=== PATIENT | female | born 1990 | race Caucasian/White ===

== ENCOUNTER 2016-09-20 19:32 | Inpatient (IN) | payer OTHER ==
[2016-09-20 22:07] LABS: Hematocrit 43 % (35-47); Hemoglobin 14.5 g/dl (12.0-16.0); Mean Corpuscular HGB Conc 34 g/dl (31-36); Mean Corpuscular Hemoglobin 31 pg (27-31); Mean Corpuscular Volume 91 fL (80-97); Mean Platelet Volume 11 um3 (7.4-10.4); Red Blood Count 4.69 10^6/ul (4.0-5.4); Red Cell Distribution Width 13 % (10.5-15); White Blood Count 16.4 10^3/ul (3.5-10.8)
[2016-09-20] MEDS ORDERED: fentaNYL* 50 MCG/ML 2 ML VIAL (100 MCG VIAL) ONE (22:23)
[2016-09-20] MEDS ORDERED: OBEPIDURAL* 250 ML ONE (22:23)
[2016-09-20] MEDS ORDERED: Sodium Citrate/Citric Acid* 15 ML UDC PO PRN (23:05)
[2016-09-20] MEDS ORDERED: Phenylephrine IV* 40 MCG/ML 10 ML SYRINGE IV PUSH PRN ×2 (23:05)
[2016-09-20] MEDS ORDERED: Famotidine TAB* 20 MG PO PRN (23:05)
[2016-09-20] MEDS ORDERED: OBEPIDURAL* 250 ML EPIDURAL SCH (23:45)
[2016-09-21] MEDS ORDERED: Oxytocin in LR* 20 UNITS/1,000 ML BAG IVPB ONE (01:46)
[2016-09-21] MEDS ORDERED: Glycerin ADULT SUPP PR PRN (02:04)
[2016-09-21] MEDS ORDERED: Dibucaine 1% 28.35 GM TUBE PR PRN (02:04)
[2016-09-21] MEDS ORDERED: Acetaminophen TAB* 325 MG PO PRN (02:04)
[2016-09-21] MEDS ORDERED: Witch Hazel PAD* JAR TOPICAL PRN (02:04)
[2016-09-21] MEDS ORDERED: Albuterol HFA INHALER* 8 gm MDI INH PRN (02:10)
[2016-09-21] MEDS ORDERED: Oxytocin in LR* 20 UNITS/1,000 ML BAG IVPB SCH (03:00)
[2016-09-21] MEDS: Ibuprofen TAB* 600 MG PO PRN ×3 (04:00→18:12)
[2016-09-21] MEDS ORDERED: Simethicone TAB* 80 MG TAB.CHEW PO SCH (08:30)
[2016-09-21] MEDS: FLUTICASONE 100 MCG INH SCH ×2 (09:04→19:26)
[2016-09-21] MEDS: Sertraline* 50 MG TAB PO SCH (09:34)
[2016-09-21] MEDS: Docusate CAP* 100 MG PO SCH ×3 (09:34→20:47)
[2016-09-21] MEDS ORDERED: RHO D Immune Globulin (HUMAN)* 300 MCG = 1,500 I.U. INJ IM ONE (13:50)
[2016-09-22] MEDS: Ibuprofen TAB* 600 MG PO PRN ×3 (00:09→17:36)
[2016-09-22 07:27] LABS: Hematocrit 41 % (35-47); Hemoglobin 14.2 g/dl (12.0-16.0); Mean Corpuscular HGB Conc 35 g/dl (31-36); Mean Corpuscular Hemoglobin 32 pg (27-31); Mean Corpuscular Volume 91 fL (80-97); Mean Platelet Volume 11 um3 (7.4-10.4); Red Blood Count 4.46 10^6/ul (4.0-5.4); Red Cell Distribution Width 13 % (10.5-15); White Blood Count 14.1 10^3/ul (3.5-10.8)
[2016-09-22] MEDS ORDERED: Ferrous Gluconate TAB* 324 MG TAB PO SCH (09:00)
[2016-09-22] MEDS: Sertraline* 50 MG TAB PO SCH (09:21)
[2016-09-22] MEDS: Docusate CAP* 100 MG PO SCH ×3 (09:21→21:26)
[2016-09-22] MEDS: FLUTICASONE 100 MCG INH SCH ×2 (09:43→21:21)
[2016-09-23] MEDS: Ibuprofen TAB* 600 MG PO PRN ×2 (00:14→08:25)
[2016-09-23] MEDS: Docusate CAP* 100 MG PO SCH (08:25)
[2016-09-23] MEDS: Sertraline* 50 MG TAB PO SCH (08:25)
[2016-09-23 08:30] VITALS: BP 121/68
[2016-09-23] MEDS: FLUTICASONE 100 MCG INH SCH (10:45)
== END 2016-09-23 10:35 | disposition home or self-care (01) | DRG 560 ==
LOC: MCHOBOUT 19:32 → MCHOB 20:06
PROVIDERS: ADMIT Obstetrics & Gynecology; ATTEND Midwife
PROC: 10E0XZZ Delivery of Products of Conception, External Approach (ICD-10-PCS; principal; 2016-09-21)
PROC: 10907ZC Drainage of Amniotic Fluid, Therapeutic from Products of Conception, Via Natural or Artificial Opening (ICD-10-PCS; 2016-09-21)
DX: O34.211 Maternal care for low transverse scar from previous cesarean delivery (principal); O99.344 Other mental disorders complicating childbirth; F32.9 Major depressive disorder, single episode, unspecified; Z3A.37 37 weeks gestation of pregnancy; Z37.0 Single live birth
CPT/HCPCS: 36415; 85025; 85027; 85461; 86850; 86870; 86880; 86900; 86901; A9270-GY; J2790; J3010

== ENCOUNTER 2017-01-09 09:54 | Emergency (ER) | payer OTHER ==
[2017-01-09 10:32] VITALS: BP 88/47
--- NOTE | 2017-01-09 10:35 | UC ---
Throat Pain/Nasal Nnamdi HPI - HPI Summary HPI Summary: complaiontof being dx with conjunctivitis on moday given 2 different eyedrops and started using them but they burn her throat complaint of sore throat that started 2 days ago feels feverish and had chills yesterday denies nasal congestion and cough frequent headaches feels nauseated- able to eat soup and crackers not taking any medication for fever or headache because she is - History of Current Complaint Chief Complaint: UCGeneralIllness Stated Complaint: FEVER Hx Obtained From: Patient Hx Last Menstrual Period: 4 months post and is - Allergies/Home Medications Allergies/Adverse Reactions: Allergies Allergy/AdvReac Type Severity Reaction Status Date / Time Adhesive Tape Allergy Mild Rash Verified 01/09/17 10:17 Latex Allergy Swelling Verified 01/09/17 10:17 BAND-AIDS Allergy Severe REDNESS, Uncoded 01/09/17 10:17 ITCHING Environmental Allergies Allergy Intermediate Sneezing Uncoded 01/09/17 10:17 PMH/Surg Hx/FS Hx/Imm Hx Previously Healthy: No - conjunctivitis, , vasovagal syndrome Endocrine History Of: Denies: Diabetes, Thyroid Disease Cardiovascular History Of: Reports: Cardiac Disorders - vasovagal syncope Denies: Hypertension, Pacemaker/ICD, Myocardial Infarction, Congestive Heart Failure, Atrial Fibrillation, Deep Vein Thrombosis, Bleeding Disorders Respiratory History Of: Reports: Asthma Denies: COPD, Bronchitis, Pneumonia, Pulmonary Embolism GI/ History Of: Denies: Gastroesophageal Reflux, Ulcer, Gastrointestinal Bleed, Gall Bladder Disease, Kidney Stones, Diverticulitis, Renal Disease, Urosepsis Neurological History Of: Reports: Migraine Denies: TIA, CVA, Dementia, Seizures Psychological History Of: Reports: Anxiety, Depression Denies: Bipolar Disorder, Schizophrenia, Post Traumatic Stress Disorder Cancer History Of: Denies: Lung Cancer, Colorectal Cancer, Breast Cancer, Prostate Cancer, Cervical Cancer Other History Of: Negative For: HIV, Hepatitis B, Hepatitis C - Surgical History Surgical History: Yes Surgery Procedure, Year, and Place: hernia repair, x1 - Family History Known Family History: Positive: Unknown, Cardiac Disease, Hypertension - Social History Lives: With Family Alcohol Use: None Substance Use Type: None Smoking Status (MU): Never Smoked Tobacco Have You Smoked in the Last Year: No - Immunization History Most Recent Influenza Vaccination: 05/06/16 Most Recent Tetanus Shot: unknown Most Recent Pneumonia Vaccination: as teenager Review of Systems Constitutional: Fever, Chills, Fatigue Skin: Negative Eyes: Drainage, Eye Redness ENT: Sore Throat Respiratory: Negative Cardiovascular: Negative Gastrointestinal: Negative Genitourinary: Negative Motor: Negative Neurovascular: Negative Musculoskeletal: Negative Neurological: Negative Psychological: Negative All Other Systems Reviewed And Are Negative: Yes Physical Exam Triage Information Reviewed: Yes Appearance: No Pain Distress, Ill-Appearing Vital Signs: Initial Vital Signs Temp 97.8 F 01/09/17 10:11 Pulse 108 01/09/17 10:11 Resp 18 01/09/17 10:11 BP 88/47 01/09/17 10:11 Pulse Ox 98 01/09/17 10:11 Vital Signs Reviewed: Yes Eyes: Positive: Conjunctiva Inflamed, Discharge ENT: Positive: Pharyngeal erythema, Nasal congestion, Nasal drainage, TMs normal Neck: Positive: No Lymphadenopathy Respiratory: Positive: Lungs clear, Normal breath sounds, No respiratory distress, No accessory muscle use Cardiovascular: Positive: No Murmur, Pulses Normal, Tachycardia Abdomen Description: Positive: Nontender, Soft Bowel Sounds: Positive: Present Musculoskeletal: Positive: No Edema Neurological Exam: Normal Psychological Exam: Normal Skin Exam: Normal Throat Pain/Nasal Course/Dx - Course Course Of Treatment: exam completed. pt not drinking fluids d/t throat pain or medicationg for fever. discussed at length importance of avoiding dehydration. will rx ibuprofen and have her increase fluids- close followup with PCP - Differential Dx/Diagnosis Differential Diagnosis/HQI/PQRI: Influenza, Pharyngitis, Sinusitis, Tonsillitis Provider Diagnoses: pharyngitis. conjunctivitis Discharge - Discharge Plan Condition: Stable Disposition: HOME Patient Education Materials: Fever in Adults (ED), Pharyngitis (ED) Referrals: Pancho Vance MD [Primary Care Provider] - Additional Instructions: It is extremely important that you take ibuprofen 2-3 times a day to manage your sore throat so you can increase your fluids intake and stay well-hydrated because of your illness and . continue your treatment for conjunctivitis If your symptoms do not improve please make followup appt with Dr Dang.
[2017-01-09] MEDS ORDERED: Ibuprofen TAB* 600 MG PO ONE (11:26)
== END 2017-01-09 11:51 | disposition home or self-care (01) ==
LOC: UCEAST 09:54
DX: J02.9 Acute pharyngitis, unspecified (principal); H10.9 Unspecified conjunctivitis; J45.909 Unspecified asthma, uncomplicated; G43.909 Migraine, unspecified, not intractable, without status migrainosus; F41.9 Anxiety disorder, unspecified; F32.9 Major depressive disorder, single episode, unspecified; Z91.040 Latex allergy status
CPT/HCPCS: 87502; 87651; 99212; A9270-GY; G0463

== ENCOUNTER 2018-06-08 08:20 | Day surgery (SDC) | payer OTHER ==
--- NOTE | 2018-05-25 07:36 | HP ---
PREOPERATIVE HISTORY AND PHYSICAL: DATE OF ADMISSION/SURGERY: 06/08/18 DATE OF OFFICE VISIT/ENCOUNTER: 05/24/18 ATTENDING SURGEON: Linda Sterling MD * (DICTATED BY SHASHANK BETANCOURT) PROCEDURE: Left wrist de Quervain's release. CHIEF COMPLAINT: Left wrist pain. HISTORY OF PRESENT ILLNESS: This is a 27-year-old female, who has had ongoing pain in her left wrist for several years on and off; however, it has become more persistent over the past year. The pain is located on the radial aspect of the wrist. She denies any injury; however, she does have young children and is regularly lifting them. She denies any trauma. There is no associated numbness or tingling. She has had 2 cortisone injections over the past year for this problem and each have worked for a period of time, but the symptoms returned. She has also tried bracing without permanent success. She is interested in having surgical intervention at this time. PAST MEDICAL HISTORY: 1. History of vasovagal episode; she is followed by Dr. Culver. 2. Asthma. 3. Depression/anxiety related to PTSD. 4. Light sensitivity, which causes headaches. PAST SURGICAL HISTORY: 1. Hernia repair. 2. x1. CURRENT MEDICATIONS: 1. Acetaminophen 500 mg 2 tablets q.4 to 6 hours p.r.n. 2. Albuterol sulfate 1 vial nebulizer 4 times a day p.r.n. 3. Fludrocortisone acetate 0.1 mg 1 tab daily. 4. Meloxicam 15 mg daily. 5. Montelukast sodium 10 mg daily. 6. Sertraline HCl 100 mg half a tab twice daily. ALLERGIES: LATEX and TAPE cause skin irritation. No known drug allergies. FAMILY MEDICAL HISTORY: Diabetes, heart disease, stroke, cancer, and rheumatoid arthritis. 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 She denies tobacco use, recreational drug use, and does not drink alcohol. REVIEW OF SYSTEMS: Negative for general, cephalic, cardiovascular, respiratory , GI, , other musculoskeletal, integumentary, endocrine, neurologic, and hematologic symptoms. Infectious Disease: Negative for MRSA, hepatitis C, and HIV. No known anesthesia problems. PHYSICAL EXAMINATION GENERAL: Well-developed, well-nourished, 27-year-old female, in no acute distress. VITAL SIGNS: Height 5 feet 2-1/2 inches, weight 148 pounds. Pulse rate 78, blood pressure 132/70. HEENT: Normocephalic, atraumatic. Pupils are equal, round, and reactive to light and accommodation. Extraocular movements are intact. Throat is clear. NECK: Supple. No palpable lymph nodes. PULMONARY: Lungs are clear to auscultation bilaterally. No wheezes, rales, or rhonchi. CARDIOVASCULAR: Regular rate and rhythm. S1, S2. No murmurs, rubs, or gallops. No edema. ABDOMEN: Positive bowel sounds, soft, nontender. NEUROLOGICAL: Alert and oriented x3. Cranial nerves II through XII are intact. Sensation is intact to light touch. MUSCULOSKELETAL: On exam of the left wrist, there is no visible swelling when compared to the right. There is tenderness to palpation at the radial styloid along the first dorsal compartment, increased pain with wrist extension and thumb abduction against resistance. Positive Camille's test on the left. NEUROLOGIC: Neurovascular function is intact. IMPRESSION: Left wrist de Quervain's tenosynovitis. PLAN: The patient is scheduled to undergo a left wrist de Quervain's release with Dr. Sterling on 06/08/18. She will follow up 10 days postop for followup and suture removal. She will plan on using [id number] Tylenol and her prescription meloxicam as prescribed for postoperative pain management. SHASHANK BETANCOURT [id number]/[facility] #: [id number] [facility]USSalvador
[~2018-06-08 08:20] MED LIST: Buffered Lidocaine 0.9% SYRIN* 5 ML/SYR SYRINGE INTRADERM ONE; Famotidine IV* 10 MG/ML 2 ML (20 mg) IV ONE; Famotidine IV* 10 MG/ML 2 ML (20 mg) ONE; Lidocaine 1% INJ* 10 MG/ML 30 ML SDV ONE
[2018-06-08] MEDS ORDERED: Acetaminophen TAB* 325 MG PO PRN (09:38)
[2018-06-08] MEDS ORDERED: Naloxone* 0.4 MG/ML 1 ML VIAL IV PRN (09:38)
[2018-06-08] MEDS ORDERED: DiMENhydriNATE IV* 50 MG/ML VIAL IV PUSH PRN (09:38)
[2018-06-08] MEDS ORDERED: Midazolam* 1 MG/ML 5 ML VIAL (5 MG) ONE (09:45)
[2018-06-08] MEDS ORDERED: fentaNYL* 50 MCG/ML 2 ML VIAL (100 MCG VIAL) ONE (09:45)
[2018-06-08] MEDS ORDERED: Lidocaine 2% PF * 5 ML VIAL ONE (10:07)
[2018-06-08] MEDS ORDERED: Propofol* 10 MG/ML 20 ML BTL IV PUSH ONE (10:07)
[2018-06-08] MEDS ORDERED: Ketorolac INJ* 30 MG/ML 1 ML VIAL ONE (10:07)
[2018-06-08] MEDS ORDERED: Ondansetron INJ* 2 MG/ML VIAL ONE (10:07)
[2018-06-08 10:27] VITALS: BP 107/70
--- NOTE | 2018-06-09 04:21 | OP ---
DATE OF OPERATION: 06/08/18 [facility] DATE OF : 89 SURGEON: Linda Sterling MD [facility] SUPERVISOR: SHASHANK Brown ANESTHESIA: Local MAC. PRE-OP DIAGNOSIS: De Quervain's tenosynovitis on the left. POST-OP DIAGNOSIS: De Quervain's tenosynovitis on the left. OPERATIVE PROCEDURE: Left de Quervain's release. ESTIMATED BLOOD LOSS: Zero. TOURNIQUET TIME: About 10 minutes. INDICATIONS FOR PROCEDURE: Shila is a 27-year-old female with pain on the radial aspect of her left wrist. She has failed conservative treatment for de Quervain's tenosynovitis, presents for de Quervain's release on the left. DESCRIPTION OF PROCEDURE: The patient was brought to the operating room and was given a sedation anesthetic with a local infiltration of 10 cc of 1% plain lidocaine in the radial aspect of her left wrist. The skin of her left hand and forearm was prepped and draped in the usual sterile fashion. The hand and forearm were exsanguinated and the tourniquet elevated to 250 mmHg. A longitudinal incision was made centered at the tip of the radial styloid. We dissected bluntly through the subcutaneous tissue down to the first dorsal compartment. Branches of the radial sensory nerve were located and were retracted by the certified medical technician assistant, Maryann Chiu. The first dorsal compartment was incised longitudinally completely releasing the APL and EPB tendons, which were in good condition. The wound was irrigated and the skin edges were reapproximated with 4-0 nylon suture. The wound was dressed with Xeroform, 4x4, Webril, and an Sreedhar wrap. The patient tolerated the procedure well and was brought to the recovery room in good condition. [id number]/[facility] #[facility] [id number] [facility]
== END 2018-06-08 10:51 | disposition home or self-care (01) ==
LOC: OREAST 08:20
PROVIDERS: ATTEND Orthopaedic Surgery
DX: M65.4 Radial styloid tenosynovitis [de Quervain] (principal); R55 Syncope and collapse; J45.909 Unspecified asthma, uncomplicated; F41.8 Other specified anxiety disorders; F43.10 Post-traumatic stress disorder, unspecified; H53.71 Glare sensitivity
CPT/HCPCS: 81025; J1885; J2250; J2405; J2704; J3010

== ENCOUNTER 2020-09-27 11:53 | Inpatient (IN) ==
[2020-09-27] MEDS ORDERED: Buffered Lidocaine 1% SYRIN 1 ml INTRADERM ONE (12:34)
[2020-09-27] MEDS ORDERED: Lactated Ringers 1000 ml BAG 1,000 ML IV SCH (13:00)
[2020-09-27 13:42] LABS: ABS Basophils 0.1 10^3/ul (0-0.2); ABS Eosinophils 0.2 10^3/ul (0-0.6); ABS Lymphocytes 2.7 10^3/ul (1.0-4.8); ABS Monocytes 1.3 10^3/ul (0-0.8); ABS Neutrophils 7.8 10^3/ul (1.5-7.7); Eosinophil % 1.9 %; Hematocrit 33 % (35-47); Hemoglobin 10.8 g/dL (12.0-16.0); Lymphocyte % 22.2 %; Mean Corpuscular HGB Conc 33 g/dL (31-36); Mean Corpuscular Hemoglobin 26 pg (27-31); Mean Corpuscular Volume 79 fL (80-97); Mean Platelet Volume 9.1 fL (7.4-10.4); Nucleated Red Blood Cells % 0.1; Platelet Count 298 10^3/uL (150-450); Red Blood Count 4.17 10^6 /uL (3.70-4.87); Red Cell Distribution Width 16 % (10-15); White Blood Count 12.1 10^3/uL (3.5-10.8)
[2020-09-27 13:59] LABS: Albumin 3.3 g/dL (3.2-5.2); Albumin/Globulin Ratio 1.1 (1-3); BUN/Creatinine Ratio 19.6 (8-20); EGFR African American 173.7 (>60); EGFR Non-African American 143.6 (>60); Globulin 2.9 g/dL (2-4); Total Bilirubin 0.5 mg/dL (0.2-1.0); Total Protein 6.2 g/dL (6.4-8.9); Uric Acid 2.8 mg/dL (2.3-6.6)
[2020-09-27 14:29] LABS: Potassium 4.6 mmol/L (3.5-5.0)
[2020-09-27 14:56] LABS: Urine Benzodiazepine Screen None Detected (None Detect); Urine Cannabinoids Screen None Detected (None Detect); Urine Opiates Screen None Detected (None Detect)
[2020-09-27] MEDS: Betamethasone 6 mg/ml 5 ml VIAL IM ONE (17:55)
[2020-09-27 21:42] LABS: Urine Appearance Cloudy; Urine Bilirubin Negative (Negative); Urine Blood Negative (Negative); Urine Color Yellow; Urine Glucose 3+(>=500 mg/dL) (Negative); Urine Ketones Negative (Negative); Urine Nitrite Negative (Negative); Urine Protein Negative (Negative); Urine Specific Gravity 1.007 (1.010-1.030); Urine Urobilinogen Negative (Negative)
[2020-09-28 17:45] LABS: Urine TP Concentration 16 mg/dL
[2020-09-28] MEDS: Betamethasone 6 mg/ml 5 ml VIAL IM ONE (18:00)
== END 2020-09-28 19:05 | disposition home or self-care (01) | DRG 560 ==
LOC: MCHOBOUT 11:53 → MCHOB 12:53 → OBSVTOIN 12:53 → INTOOBSV 12:53
PROVIDERS: ADMIT Obstetrics & Gynecology; ATTEND Obstetrics & Gynecology

== ENCOUNTER 2020-10-03 08:58 | Inpatient (IN) ==
[~2020-10-03 08:58] MED LIST changes: -Buffered Lidocaine 0.9% SYRIN* 5 ML/SYR SYRINGE INTRADERM ONE; +Buffered Lidocaine 1% SYRIN 1 ml INTRADERM ONE; -Famotidine IV* 10 MG/ML 2 ML (20 mg) IV ONE; -Famotidine IV* 10 MG/ML 2 ML (20 mg) ONE; -Lidocaine 1% INJ* 10 MG/ML 30 ML SDV ONE; +ceFOXitin 2 GM IVPREMIX 2 GM/50 ML BAG IVPB ONE
[2020-10-03] MEDS ORDERED: Sodium Citrate/Citric Acid LIQ 15 ML UDC ONE (10:26)
[2020-10-03] MEDS ORDERED: Famotidine IV 10 MG/ML 2 ml VIAL (20 mg) ONE (10:27)
[2020-10-03] MEDS ORDERED: Sodium Citrate/Citric Acid LIQ 15 ML UDC PO ONE (10:36)
[2020-10-03] MEDS ORDERED: Lactated Ringers 1000 ml BAG 1,000 ML IV ONE (10:41)
[2020-10-03 10:51] LABS: Urine Benzodiazepine Screen None Detected (None Detect); Urine Cannabinoids Screen None Detected (None Detect); Urine Opiates Screen None Detected (None Detect)
[2020-10-03] MEDS ORDERED: EPHEDrine (Pressors) 50 MG/ML VIAL ONE (10:53)
[2020-10-03] MEDS ORDERED: Morphine PF AMP (0.5MG/ML) 5 MG/10 ML AMP ONE (10:53)
[2020-10-03] MEDS ORDERED: fentaNYL 100 mcg/2 ml 50 MCG/ML VIAL ONE (10:53)
[2020-10-03] MEDS ORDERED: Phenylephrine 40 mcg/mL 10mL (400mcg) SYRINGE ONE (10:54)
[2020-10-03] MEDS ORDERED: Oxytocin 10 UNITS/ML 1 ML VIAL ONE (11:51)
[2020-10-03] MEDS ORDERED: Ondansetron 4 mg VIAL 2 MG/ML 2 ml VIAL ONE (12:01)
[2020-10-03] MEDS ORDERED: Dibucaine 1% OINT 28.35 GM TUBE PR PRN (13:00)
[2020-10-03] MEDS ORDERED: Glycerin ADULT 2.4 gm SUPP PR PRN (13:00)
[2020-10-03] MEDS ORDERED: Lactated Ringers 1000 ml BAG 1,000 ML IV SCH (13:00)
[2020-10-03] MEDS ORDERED: Witch Hazel PAD JAR TOPICAL PRN (13:00)
[2020-10-03] MEDS ORDERED: diPHENhydraMINE IV 50 MG/ML 1 ml VIAL (BENADRYL) IV PRN (15:38)
[2020-10-04 06:40] LABS: ABS Basophils 0.1 10^3/ul (0-0.2); ABS Eosinophils 0.2 10^3/ul (0-0.6); ABS Lymphocytes 3.1 10^3/ul (1.0-4.8); ABS Monocytes 1.5 10^3/ul (0-0.8); ABS Neutrophils 9.5 10^3/ul (1.5-7.7); Eosinophil % 1.1 %; Hematocrit 29 % (35-47); Hemoglobin 9.4 g/dL (12.0-16.0); Lymphocyte % 21.5 %; Mean Corpuscular HGB Conc 33 g/dL (31-36); Mean Corpuscular Hemoglobin 25 pg (27-31); Mean Corpuscular Volume 78 fL (80-97); Mean Platelet Volume 9.2 fL (7.4-10.4); Nucleated Red Blood Cells % 0.1; Platelet Count 260 10^3/uL (150-450); Red Blood Count 3.71 10^6 /uL (3.70-4.87); Red Cell Distribution Width 16 % (10-15); White Blood Count 14.3 10^3/uL (3.5-10.8)
[2020-10-04] MEDS ORDERED: RHO D Immune Globulin (HUMAN) 300 MCG = 1,500 I.U. INJ IM ONE (17:24)
[2020-10-04] MEDS ORDERED: Tetan/Diph/Pertus SYR(Tdap) 0.5 ML SYR(BOOSTRIX) use SYR contains LATEX IM ONE (20:26)
[2020-10-05 08:11] VITALS: BP 103/62
== END 2020-10-05 11:18 | disposition home or self-care (01) | DRG 540 ==
LOC: MCHOB 08:58
PROVIDERS: ADMIT Obstetrics & Gynecology; ATTEND Obstetrics & Gynecology